=== PATIENT | female | born 1985 | race American Indian/Alaskan Native ===

== ENCOUNTER 2019-05-14 16:19 | Outpatient (CLI) | payer MEDICAID, OTHER ==
[2019-05-14 17:54] LABS: Hematocrit 33.9 % (30.3-42.9); Hemoglobin 11.7 gm/dl (10.1-14.3); Mean Corpuscular HGB Conc 35 % (30-34); Mean Corpuscular Volume 84 fl (79-97); Platelet Count 283 K/mm3 (140-440); Red Blood Count 4.02 M/mm3 (3.65-5.03); Red Cell Distribution Width 13.6 % (13.2-15.2)
[2019-05-14 18:02] LABS: Bilirubin,Urine NEG (Negative); Blood,Urine NEG (Negative); Color,Urine Yellow (Yellow); Mucus,Urine FEW /HPF; Urobilinogen,Urine < 2.0 mg/dL (<2.0)
[2019-05-14] MEDS ORDERED: LACTATED RINGERS 1,000 ML IV ONE (18:08)
[2019-05-14] MEDS ORDERED: ZOFRAN IV ONE (18:08)
[2019-05-14 18:16] LABS: Alanine Aminotransferase 12 units/L (7-56); Albumin 3.4 g/dL (3.9-5); BUN/Creatinine Ratio 13; Blood Urea Nitrogen 5 mg/dL (7-17); Calcium 9.2 mg/dL (8.4-10.2); Hemolysis Index 24
[2019-05-14] MEDS ORDERED: LACTATED RINGERS 1,000 ML ONE (18:23)
[2019-05-14 18:32] LABS: Basophils % (Manual) 0 % (0.0-1.8); Eosinophils % (Manual) 0 % (0.0-4.3); Total Cells Counted 100
[2019-05-14 18:34] LABS: Anisocytosis Few; Platelet Estimate Consistent w Auto; Target Cells 1+
--- NOTE | 2019-05-14 18:45 | Ultrasound Report ---
ULTRASOUND OBSTETRIC INDICATION / CLINICAL INFORMATION: non reassurring FHT. Clinical Gestational Age (GA): 29 weeks 6 days TECHNIQUE: Transabdominal. COMPARISON: None available. FINDINGS: There is a single intrauterine . heart rate 1 5 7 bpm Biophysical profile score 8/8 IMPRESSION: 1. Single, living intrauterine with demonstrated cardiac activity and heart rate 157 bpm 2. Biophysical profile score 8/8 Signer Name: Cam Carrasco MD Signed: 05/14/2019 6:40 PM Workstation Name: [id number]
--- NOTE | 2019-05-14 18:45 | Ultrasound Report ---
ULTRASOUND OBSTETRIC INDICATION / CLINICAL INFORMATION: Abdominal pain. Clinical Gestational Age (GA): 29 weeks 6 days TECHNIQUE: Transabdominal. COMPARISON: None available. FINDINGS: There is a single intrauterine . The placenta appears normal. Heart Rate: 157 beats per minute. Amniotic fluid index 10.4 cm. IMPRESSION: 1. Single, living intrauterine with heart rate 157 bpm. 2. No significant sonographic abnormality. Signer Name: Cam Carrasco MD Signed: 05/14/2019 6:41 PM Workstation Name: [id number]
[2019-05-14 19:41] VITALS: BP 116/58
== END 2019-05-14 21:09 | disposition home or self-care (01) ==
LOC: TRG 16:19
PROVIDERS: ATTEND Obstetrics & Gynecology
DX: O26.893 Other specified pregnancy related conditions, third trimester (principal); R10.30 Lower abdominal pain, unspecified; M54.9 Dorsalgia, unspecified; O47.03 False labor before 37 completed weeks of gestation, third trimester; O24.419 Gestational diabetes mellitus in pregnancy, unspecified control; Z87.891 Personal history of nicotine dependence; Z3A.29 29 weeks gestation of pregnancy
CPT/HCPCS: 36415; 76815; 76819; 80053; 81001; 82150; 83690; 85007; 85025; 86850; 86900; 86901; 87400; 96361; 96374; J2405; J7120; 96360

== ENCOUNTER 2019-07-07 10:30 | Outpatient (CLI) | payer OTHER ==
[2019-07-07 10:59] VITALS: BP 122/72
[2019-07-07] MEDS ORDERED: LACTATED RINGERS 1,000 ML IV SCH (11:00)
[2019-07-07 11:23] LABS: Bacteria,Urine 1+ /HPF (Negative); Bilirubin,Urine NEG (Negative); Blood,Urine NEG (Negative); Color,Urine Yellow (Yellow); Protein,Urine <15 mg/dL mg/dL (Negative); Urobilinogen,Urine < 2.0 mg/dL (<2.0)
[2019-07-07] MEDS ORDERED: cefTRIAXone/NS 1 GM/50 ML 1 GM/50 ML BAG IV ONE (13:00)
--- NOTE | 2019-07-07 14:51 | Ultrasound Report ---
ULTRASOUND BIOPHYSICAL PROFILE ULTRASOUND OB LIMITED INDICATION: vidya TECHNIQUE: Transabdominal ultrasound imaging. COMPARISON: None FINDINGS: breathing movement = 2 Gross body movement = 2 tone = 2 Qualitative amniotic fluid volume = 2 Total biophysical score = 8/8 Amniotic fluid index is 12.1 cm. Presentation is cephalic. heart rate is 138 beats per minute. IMPRESSION: biophysical profile equals 8/8. Signer Name: Laith La Jr, MD Signed: 07/07/2019 2:47 PM Workstation Name: [id number]
== END 2019-07-07 14:52 | disposition home or self-care (01) ==
LOC: TRG 10:30
PROVIDERS: ATTEND Obstetrics & Gynecology
DX: O26.893 Other specified pregnancy related conditions, third trimester (principal); R10.30 Lower abdominal pain, unspecified; O36.8330 Maternal care for abnormalities of the fetal heart rate or rhythm, third trimester, not applicable or unspecified; O47.1 False labor at or after 37 completed weeks of gestation; Z3A.37 37 weeks gestation of pregnancy; Z87.891 Personal history of nicotine dependence
CPT/HCPCS: 59025; 76815; 76819; 81001; 87086; 96361; 96365; J0696; J7120; 96360; 96374

== ENCOUNTER 2019-07-15 08:12 | Inpatient (IN) | payer OTHER ==
[2019-07-15] MEDS ORDERED: TERBUTALINE 1 MG/1 ML INJ IVP PRN (10:24)
[2019-07-15] MEDS ORDERED: ONDANSETRON 4 MG/2 ML INJ IV PRN (10:24)
[2019-07-15] MEDS ORDERED: PROMETHAZINE 25 MG TAB PO PRN (10:24)
[2019-07-15] MEDS ORDERED: NALOXONE 0.4 MG/1 ML INJ IV PRN (10:24)
[2019-07-15] MEDS ORDERED: LIDOCAINE (2%) 20 MG/1 ML VIAL 20 ML MDV INFILTRATI ONE (10:24)
[2019-07-15] MEDS ORDERED: ePHEDrine SULFATE 50 MG/1 ML INJ IV PRN (10:24)
[2019-07-15] MEDS ORDERED: miSOPROStol 25 MCG TAB VG PRN (10:24)
[2019-07-15] MEDS ORDERED: TERBUTALINE 1 MG/1 ML INJ SUB-Q PRN (10:24)
[2019-07-15] MEDS ORDERED: MINERAL OIL 30 ML ORAL LIQD PO PRN (10:24)
[2019-07-15] MEDS ORDERED: OXYTOCIN DRIP 30 UNITS/500 ML BAG IV SCH ×2 (11:00)
[2019-07-15] MEDS ORDERED: OXYTOCIN 20 UNIT/1000ML DRIP 20 UNITS/1,000 ML BAG IV SCH (11:00)
[2019-07-15 11:02] LABS: Hematocrit 35.6 % (30.3-42.9); Hemoglobin 12.4 gm/dl (10.1-14.3); Mean Corpuscular HGB Conc 35 % (30-34); Mean Corpuscular Volume 85 fl (79-97); Platelet Count 274 K/mm3 (140-440); Red Blood Count 4.19 M/mm3 (3.65-5.03)
[2019-07-15] MEDS: LACTATED RINGERS 1,000 ML IV SCH ×2 (12:48→20:06)
--- NOTE | 2019-07-15 16:20 | History and Physical Report ---
History of Present Illness Date of examination: 07/15/19 Date of admission: 07/15/19 08:12 Chief complaint: IOL for IUGR History of present illness: This is a 33yo at 38+4 weeks here for IOL for IUGR . 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 denies: smoking, alcohol abuse, prescription drug abuse - Obstetrical History Expected Date of Delivery: 07/25/19 Actual Gestation: 38 Week(s) 4 Day(s) : 3 Para: 1 Hx # Term Pregnancies: 1 Number of Pregnancies: 0 Spontaneous Abortions: 1 Induced : 0 Number of Living Children: 1 Medications and Allergies Allergies Allergy/AdvReac Type Severity Reaction Status Date / Time No Known Allergies Allergy Verified 07/07/19 10:33 Home Medications Medication Instructions Recorded Confirmed Last Taken Type Nitrofurantoin Meade/M-Cryst 100 mg PO Q12HR #14 capsule 07/07/19 07/15/19 07/14/19 20:00 Rx [Macrobid CAP] Vit-Fe Fumar-FA [ 1 tab PO QDAY 07/15/19 07/15/19 07/14/19 08:00 History Vitamin] valACYclovir [Valtrex] 500 mg PO QDAY 07/15/19 07/15/19 07/14/19 08:00 History Active Meds: Active Medications Butorphanol Tartrate (Stadol) 2 mg IV Q2H PRN PRN Reason: Pain , Severe (7-10) Ephedrine Sulfate (Ephedrine Sulfate) 10 mg IV Q2M PRN PRN Reason: Hypotension Fentanyl (Sublimaze) 100 mcg IV Q2H PRN PRN Reason: Labor Pain Oxytocin/Sodium Chloride (Pitocin/Ns 20 Unit/1000ml Drip) 20 units in 1,000 mls @ 125 mls/hr IV DIRECT MARIE Oxytocin/Sodium Chloride (Pitocin/Ns 30 Unit/500ml) 30 units in 500 mls @ 1 mls/hr IV TITR MARIE; Protocol Last Admin: 07/15/19 13:22 Dose: 2 milliunits/min, 2 mls/hr Documented by: Oxytocin/Sodium Chloride (Pitocin/Ns 30 Unit/500ml) 30 units in 500 mls @ 0 mls/hr IV TITR MARIE; Protocol Lactated Ringer's (Lactated Ringers) 1,000 mls @ 125 mls/hr IV DIRECT MARIE Last Admin: 07/15/19 12:48 Dose: 125 mls/hr Documented by: Mineral Oil (Mineral Oil) 30 ml PO QHS PRN PRN Reason: Constipation Misoprostol (Cytotec) 25 mcg VG Q4HR PRN PRN Reason: Labor Induction Naloxone HCl (Naloxone) 0.1 mg IV Q2MIN PRN PRN Reason: Res Rate </= 8 or 02 SAT < 92% Ondansetron HCl (Zofran) 4 mg IV Q8H PRN PRN Reason: Nausea And Vomiting Promethazine HCl (Phenergan) 25 mg PO Q6H PRN PRN Reason: Nausea And Vomiting Terbutaline Sulfate (Brethine) 0.25 mg SUB-Q ONCE PRN PRN Reason: Hyperstimulation/Hypertonicity Terbutaline Sulfate (Brethine) 0.25 mg IVP ONCE PRN PRN Reason: Hyperstimulation/Hypertonicity Review of Systems All systems: negative - Vital Signs Vital signs: Vital Signs Temp Pulse Resp BP 97.8 F 89 18 120/63 07/15/19 09:11 07/15/19 09:11 07/15/19 09:11 07/15/19 09:11 Temp Pulse Resp BP Pulse Ox 97.8 F 81 18 127/67 99 07/15/19 13:03 07/15/19 16:07 07/15/19 13:03 07/15/19 15:53 07/15/19 16:07 - Physical Exam Breasts: Positive: normal Cardiovascular: Regular rate, Normal S1 Lungs: Positive: Clear to auscultation, Normal air movement Abdomen: Positive: normal appearance, soft, normal bowel sounds Genitourinary (Female): Positive: normal external genitalia Vagina: Positive: normal moisture Uterus: Positive: normal size, normal contour Anus/Rectum: Positive: normal perianal skin Deep Tendon Reflex Grade: Normal +2 - Obstetrical Cervical Dilatation: 1 Cervical Effacement Percentage: 70 station: -2 Uterine Contraction Pattern: Irregular Uterine Tone Measurement Phase: Resting Results Result Diagrams: 07/15/19 09:00 Abnormal lab results 07/15/19 Range/Units 09:00 MCHC 35 H (30-34) % All other labs normal. Assessment and Plan A/P HD#1 38+4 weeks IUGR IOL recommneded by [facility] IVF,labs pitocin low dose for IOL GBS neg expect vaginal delivery
[2019-07-15] MEDS: BUTORPHANOL 2 MG/1 ML INJ IV PRN (19:57)
[2019-07-16] MEDS: BUTORPHANOL 2 MG/1 ML INJ IV PRN ×3 (00:21→12:48)
--- NOTE | 2019-07-16 12:33 | Progress Note ---
Assessment and Plan IUP at 38.3 weeks here for induction due to IUGR. Pt has made no cervical change overnight. Will likely not restart pitocin as cervix is not favorable. Place cervidil Subjective - Subjective Date of service: 07/16/19 Principal diagnosis: IUGR at 38 weeks Interval history: Pt was sent over from [facility] yesterday with instructions to induce labor secondary to IUGR. Pt was place on low dose pitocin overnight. Patient reports: movement normal Objective - Vital Signs Vital Signs: Vital Signs - 12hr 07/16/19 07/16/19 07/16/19 00:32 00:37 00:42 Temperature Pulse Rate 80 80 82 Respiratory Rate Blood Pressure Blood Pressure [Right] O2 Sat by Pulse 98 98 98 Oximetry 07/16/19 07/16/19 07/16/19 00:47 00:52 00:57 Temperature Pulse Rate 83 86 85 Respiratory Rate Blood Pressure Blood Pressure [Right] O2 Sat by Pulse 98 98 98 Oximetry 07/16/19 07/16/19 07/16/19 01:02 01:07 01:12 Temperature Pulse Rate 76 91 H 90 Respiratory Rate Blood Pressure Blood Pressure [Right] O2 Sat by Pulse 97 97 98 Oximetry 07/16/19 07/16/19 07/16/19 01:17 01:22 01:27 Temperature Pulse Rate 84 82 90 Respiratory Rate Blood Pressure Blood Pressure [Right] O2 Sat by Pulse 97 98 97 Oximetry 07/16/19 07/16/19 07/16/19 01:32 01:37 01:42 Temperature Pulse Rate 89 79 78 Respiratory Rate Blood Pressure Blood Pressure [Right] O2 Sat by Pulse 100 99 98 Oximetry 07/16/19 07/16/19 07/16/19 01:52 01:57 02:02 Temperature Pulse Rate 106 H 90 93 H Respiratory Rate Blood Pressure Blood Pressure [Right] O2 Sat by Pulse 99 99 99 Oximetry 07/16/19 07/16/19 07/16/19 02:07 02:12 02:17 Temperature Pulse Rate 94 H 96 H 80 Respiratory Rate Blood Pressure Blood Pressure [Right] O2 Sat by Pulse 99 99 98 Oximetry 07/16/19 07/16/19 07/16/19 02:22 02:25 02:27 Temperature Pulse Rate 80 77 83 Respiratory Rate Blood Pressure 107/61 Blood Pressure [Right] O2 Sat by Pulse 99 99 Oximetry 07/16/19 07/16/19 07/16/19 02:32 02:37 02:42 Temperature Pulse Rate 84 73 77 Respiratory Rate Blood Pressure Blood Pressure [Right] O2 Sat by Pulse 99 98 99 Oximetry 07/16/19 07/16/19 07/16/19 02:47 02:52 02:57 Temperature Pulse Rate 79 76 82 Respiratory Rate Blood Pressure Blood Pressure [Right] O2 Sat by Pulse 99 99 100 Oximetry 07/16/19 07/16/19 07/16/19 03:02 03:07 03:12 Temperature Pulse Rate 83 82 81 Respiratory Rate Blood Pressure Blood Pressure [Right] O2 Sat by Pulse 99 99 98 Oximetry 07/16/19 07/16/19 07/16/19 03:17 03:22 03:27 Temperature Pulse Rate 77 84 84 Respiratory Rate Blood Pressure Blood Pressure [Right] O2 Sat by Pulse 99 99 99 Oximetry 07/16/19 07/16/19 07/16/19 03:32 03:37 03:42 Temperature Pulse Rate 75 78 82 Respiratory Rate Blood Pressure Blood Pressure [Right] O2 Sat by Pulse 100 99 100 Oximetry 07/16/19 07/16/19 07/16/19 03:47 03:52 03:57 Temperature Pulse Rate 89 76 91 H Respiratory Rate Blood Pressure Blood Pressure [Right] O2 Sat by Pulse 99 99 100 Oximetry 07/16/19 07/16/19 07/16/19 04:02 04:07 04:12 Temperature Pulse Rate 80 87 85 Respiratory Rate Blood Pressure Blood Pressure [Right] O2 Sat by Pulse 100 99 99 Oximetry 07/16/19 07/16/19 07/16/19 04:17 04:22 04:24 Temperature Pulse Rate 80 87 82 Respiratory Rate Blood Pressure 106/54 Blood Pressure [Right] O2 Sat by Pulse 100 99 Oximetry 07/16/19 07/16/19 07/16/19 04:28 04:33 04:38 Temperature Pulse Rate 76 86 83 Respiratory Rate Blood Pressure Blood Pressure [Right] O2 Sat by Pulse 99 98 98 Oximetry 07/16/19 07/16/19 07/16/19 04:43 04:48 04:53 Temperature Pulse Rate 68 84 89 Respiratory Rate Blood Pressure Blood Pressure [Right] O2 Sat by Pulse 99 99 99 Oximetry 07/16/19 07/16/19 07/16/19 04:58 05:03 05:08 Temperature Pulse Rate 86 87 82 Respiratory Rate Blood Pressure Blood Pressure [Right] O2 Sat by Pulse 99 100 100 Oximetry 07/16/19 07/16/19 07/16/19 05:15 05:20 05:25 Temperature Pulse Rate 85 91 H 88 Respiratory Rate Blood Pressure Blood Pressure [Right] O2 Sat by Pulse 99 99 99 Oximetry 07/16/19 07/16/19 07/16/19 05:30 05:35 05:40 Temperature Pulse Rate 84 85 88 Respiratory Rate Blood Pressure Blood Pressure [Right] O2 Sat by Pulse 99 99 98 Oximetry 07/16/19 07/16/19 07/16/19 05:45 05:50 05:55 Temperature Pulse Rate 88 78 95 H Respiratory Rate Blood Pressure Blood Pressure [Right] O2 Sat by Pulse 99 99 100 Oximetry 07/16/19 07/16/19 07/16/19 06:00 06:05 06:10 Temperature Pulse Rate 90 107 H 85 Respiratory Rate Blood Pressure Blood Pressure [Right] O2 Sat by Pulse 100 100 100 Oximetry 07/16/19 07/16/19 07/16/19 06:15 06:20 06:24 Temperature Pulse Rate 98 H 101 H 93 H Respiratory Rate Blood Pressure 150/70 Blood Pressure [Right] O2 Sat by Pulse 99 100 Oximetry 07/16/19 07/16/19 07/16/19 06:25 06:30 06:33 Temperature Pulse Rate 98 H 97 H Respiratory 16 Rate Blood Pressure Blood Pressure [Right] O2 Sat by Pulse 100 100 Oximetry 07/16/19 07/16/19 07/16/19 06:35 06:40 06:45 Temperature Pulse Rate 85 92 H 76 Respiratory Rate Blood Pressure Blood Pressure [Right] O2 Sat by Pulse 100 99 99 Oximetry 07/16/19 07/16/19 07/16/19 06:50 06:55 07:00 Temperature Pulse Rate 78 77 77 Respiratory Rate Blood Pressure Blood Pressure [Right] O2 Sat by Pulse 98 98 98 Oximetry 07/16/19 07/16/19 07/16/19 07:05 07:43 08:09 Temperature 98.7 F Pulse Rate 82 82 94 H Respiratory 16 Rate Blood Pressure Blood Pressure 150/70 [Right] O2 Sat by Pulse 98 98 99 Oximetry 07/16/19 07/16/19 07/16/19 08:14 08:19 08:24 Temperature Pulse Rate 93 H 93 H 93 H Respiratory Rate Blood Pressure 120/63 Blood Pressure [Right] O2 Sat by Pulse 98 99 98 Oximetry 07/16/19 07/16/19 07/16/19 08:29 08:34 08:39 Temperature Pulse Rate 81 82 86 Respiratory Rate Blood Pressure Blood Pressure [Right] O2 Sat by Pulse 98 98 98 Oximetry 07/16/19 07/16/19 07/16/19 08:44 08:49 08:54 Temperature Pulse Rate 76 78 79 Respiratory Rate Blood Pressure Blood Pressure [Right] O2 Sat by Pulse 98 98 98 Oximetry 07/16/19 07/16/19 07/16/19 08:59 09:04 09:09 Temperature Pulse Rate 75 78 82 Respiratory Rate Blood Pressure Blood Pressure [Right] O2 Sat by Pulse 98 97 97 Oximetry 07/16/19 07/16/19 07/16/19 09:14 09:19 09:24 Temperature Pulse Rate 75 83 81 Respiratory Rate Blood Pressure Blood Pressure [Right] O2 Sat by Pulse 98 98 98 Oximetry 07/16/19 07/16/19 07/16/19 09:29 09:34 09:39 Temperature Pulse Rate 84 83 80 Respiratory Rate Blood Pressure Blood Pressure [Right] O2 Sat by Pulse 98 98 98 Oximetry 07/16/19 07/16/19 07/16/19 09:44 09:49 09:54 Temperature Pulse Rate 79 78 75 Respiratory Rate Blood Pressure Blood Pressure [Right] O2 Sat by Pulse 99 98 98 Oximetry 07/16/19 07/16/19 07/16/19 09:59 10:08 10:13 Temperature Pulse Rate 81 84 79 Respiratory Rate Blood Pressure Blood Pressure [Right] O2 Sat by Pulse 98 100 99 Oximetry 07/16/19 07/16/19 07/16/19 10:18 10:23 10:24 Temperature Pulse Rate 79 85 88 Respiratory Rate Blood Pressure 119/60 Blood Pressure [Right] O2 Sat by Pulse 99 99 Oximetry 07/16/19 07/16/19 07/16/19 10:28 11:41 12:11 Temperature Pulse Rate 89 90 93 H Respiratory Rate Blood Pressure 113/53 107/51 Blood Pressure [Right] O2 Sat by Pulse 100 Oximetry - Exam Breasts: deferred Cardiovascular: Regular rate, Normal S1, Normal S2 Lungs: Clear to auscultation, Normal air movement Abdomen: Present: normal appearance, soft, normal bowel sounds FHR: auscultation normal Cervical Dilatation: 1.5 Cervical Effacement Percentage: 40 station: 4 Uterine Contraction Pattern: Absent Deep Tendon Reflex Grade: Normal +2 - Labs Labs: Abnormal Labs 07/15/19 09:00 MCHC 35 H
[2019-07-16] MEDS: LACTATED RINGERS 1,000 ML IV SCH (12:51)
[2019-07-16] MEDS ORDERED: DINOPROSTONE 10 MG VAG SUPP VG ONE (13:54)
[2019-07-16] MEDS ORDERED: diphenhydrAMINE 50 MG CAP PO NR (19:00)
[2019-07-17] MEDS: BUTORPHANOL 2 MG/1 ML INJ IV PRN (05:50)
[2019-07-17] MEDS: miSOPROStol 25 MCG TAB PO PRN ×3 (11:58→20:35)
[2019-07-17] MEDS: LACTATED RINGERS 1,000 ML IV SCH (12:02)
[2019-07-17] MEDS ORDERED: ZOLPIDEM 5 MG TAB PO PRN ×2 (19:19→20:22)
[2019-07-18] MEDS: LACTATED RINGERS 1,000 ML IV SCH ×2 (01:14→08:55)
--- NOTE | 2019-07-18 08:47 | Progress Note ---
Assessment and Plan - Patient Problems (1) Intrauterine growth restriction affecting care of mother Current Visit: Yes Status: Acute Plan to address problem: continue with induction pitocin and amnioinfusion Subjective - Subjective Date of service: 07/18/19 Principal diagnosis: IUGR at 38 weeks Interval history: 33y/o @ 39+0 weeks being induced for IUGR. The patient has not responded to induction agents. She remains intact. Last medication given cytotec po yesterday around 8:30pm. Cervix today 2-3/50/-3. Amniotomy performed and IUPC placed with meconium stained fluid. Will initiate pitocin and amnioinfusion. Patient reports: movement normal Objective - Vital Signs Vital Signs: Vital Signs - 12hr 07/17/19 07/17/19 07/17/19 20:49 20:54 20:59 Temperature Pulse Rate 76 90 83 Respiratory Rate Blood Pressure Blood Pressure [Right] O2 Sat by Pulse 100 100 100 Oximetry 07/17/19 07/17/19 07/17/19 21:03 21:04 21:09 Temperature Pulse Rate 93 H 98 H 79 Respiratory 20 Rate Blood Pressure 135/83 Blood Pressure 123/60 [Right] O2 Sat by Pulse 100 100 Oximetry 07/17/19 07/17/19 07/17/19 21:14 21:30 21:33 Temperature Pulse Rate 100 H 77 104 H Respiratory 20 Rate Blood Pressure 123/59 Blood Pressure 123/60 [Right] O2 Sat by Pulse 100 99 Oximetry 07/17/19 07/17/19 07/17/19 22:02 22:32 23:03 Temperature Pulse Rate 82 86 77 Respiratory Rate Blood Pressure 111/57 116/59 103/57 Blood Pressure [Right] O2 Sat by Pulse Oximetry 07/17/19 07/18/19 07/18/19 23:33 00:03 00:34 Temperature Pulse Rate 80 80 85 Respiratory Rate Blood Pressure 88/52 89/52 89/50 Blood Pressure [Right] O2 Sat by Pulse Oximetry 07/18/19 07/18/19 07/18/19 01:08 03:20 03:25 Temperature 97.3 F L Pulse Rate 85 82 77 Respiratory 18 Rate Blood Pressure 97/59 Blood Pressure 89/50 [Right] O2 Sat by Pulse 99 99 Oximetry 07/18/19 07/18/19 07/18/19 03:30 03:35 03:40 Temperature Pulse Rate 88 76 74 Respiratory Rate Blood Pressure Blood Pressure [Right] O2 Sat by Pulse 100 100 100 Oximetry 07/18/19 07/18/19 07/18/19 03:43 03:45 03:50 Temperature Pulse Rate 86 84 82 Respiratory 20 Rate Blood Pressure Blood Pressure 97/59 [Right] O2 Sat by Pulse 99 100 98 Oximetry 07/18/19 07/18/19 07/18/19 03:55 04:00 04:05 Temperature Pulse Rate 94 H 76 80 Respiratory Rate Blood Pressure Blood Pressure [Right] O2 Sat by Pulse 100 100 100 Oximetry 07/18/19 07/18/19 07/18/19 04:10 04:15 04:20 Temperature Pulse Rate 82 83 84 Respiratory Rate Blood Pressure Blood Pressure [Right] O2 Sat by Pulse 100 98 99 Oximetry 07/18/19 07/18/19 07/18/19 04:25 04:30 04:35 Temperature Pulse Rate 81 85 96 H Respiratory Rate Blood Pressure Blood Pressure [Right] O2 Sat by Pulse 99 100 100 Oximetry 07/18/19 07/18/19 07:45 07:47 Temperature 98.1 F Pulse Rate 87 Respiratory 18 Rate Blood Pressure 124/70 Blood Pressure [Right] O2 Sat by Pulse Oximetry - Labs Labs: Abnormal Labs 07/15/19 09:00 MCHC 35 H
[2019-07-18] MEDS ORDERED: OXYTOCIN DRIP 30 UNITS/500 ML BAG IV SCH (09:00)
[2019-07-18] MEDS ORDERED: SODIUM CHLORIDE 0.9% 1000 ML 1,000 ML ONE ×2 (09:03→10:25)
[2019-07-18] MEDS: fentaNYL 100 MCG/2 ML INJ IV PRN ×2 (09:58→12:03)
[2019-07-18] MEDS ORDERED: miSOPROStol 200 MCG TAB PO ONE (14:05)
[2019-07-18] MEDS ORDERED: LIDOCAINE (2%) 20 MG/1 ML VIAL 20 ML MDV INFILTRATI ONE (14:05)
[2019-07-18 14:10] LABS: Hematocrit 39.7 % (30.3-42.9); Hemoglobin 13.2 gm/dl (10.1-14.3); Mean Corpuscular HGB Conc 33 % (30-34); Mean Corpuscular Volume 86 fl (79-97); Platelet Count 276 K/mm3 (140-440); Red Cell Distribution Width 15.3 % (13.2-15.2)
[2019-07-18] MEDS ORDERED: ONDANSETRON 4 MG/2 ML INJ IV PRN (14:41)
[2019-07-18] MEDS ORDERED: PROMETHAZINE 25 MG TAB PO PRN (14:41)
[2019-07-18] MEDS ORDERED: diphenhydrAMINE 25 MG CAP PO PRN (14:41)
[2019-07-18] MEDS ORDERED: ACETAMINOPHEN 325 MG TAB PO PRN (14:41)
[2019-07-18] MEDS ORDERED: LANOLIN/ZINC/DIMETHICONE (LANSINOH) 7 GM TP PRN (14:41)
[2019-07-18] MEDS ORDERED: PROMETHAZINE 25 MG RECT SUPP PR PRN (14:41)
[2019-07-18] MEDS ORDERED: WITCH HAZEL/ GLYCERIN PAD TP PRN (14:41)
[2019-07-18] MEDS ORDERED: MAGNESIUM HYDROXIDE (MOM) ORAL LIQD UDC PO PRN (14:41)
[2019-07-18] MEDS ORDERED: IBUPROFEN 600 MG TAB PO PRN ×2 (14:49→15:02)
--- NOTE | 2019-07-18 14:49 | Procedure Note ---
OB Delivery Note - Delivery Date of Delivery: 07/18/19 Surgeon: RODOLFO OLSON ([facility]) Estimated blood loss: 200cc - Vaginal Delivery presentation: vertex Delivery position: OA Intrapartum events: PROM->1hr before delivery, meconium, other(please specify) (4-day induction of labor) Delivery induction: oxytocin Delivery augmentation: rupture of membranes, pitocin Delivery monitor: external FHT, external uterine Route of delivery: Delivery placenta: spontaneous Delivery cord: 3 umbilical vessels Episiotomy: none Delivery laceration: none Anesthesia: none Delivery comments: Pt noted to have anterior lip. Commenced pushing and manually reduced cervix. Excellent maternal effort resulted in of viable male infant over intact perineum with meconium-stained fluid and body. Head delivered OA, restituted LOT. Shoulders followed easily. Spontaneous respirations. Bulb suction of oropharynx by [facility]YLE team. Delayed cord clamping. Pitocin infusing. Placenta delivered 20 minutes after , spontaneously and intact, succenturiate lobe noted, 3 vessel cord. EBL 200cc. Cytotec 800 mcg administered ND. Mother and bonding well. - A Infant Gender: Male
[2019-07-18] MEDS: IBUPROFEN 600 MG TAB PO SCH ×2 (15:07→23:28)
[2019-07-18] MEDS ORDERED: oxyCODONE /ACETAMINOPHEN 5-325MG TAB PO ONE (16:35)
[2019-07-18] MEDS: FERROUS SULFATE 325 MG TAB PO SCH (22:12)
[2019-07-18 23:22] LABS: Hematocrit 28.1 % (30.3-42.9); Hemoglobin 9.3 gm/dl (10.1-14.3)
[2019-07-19 06:36] LABS: Hemoglobin 9.1 gm/dl (10.1-14.3)
[2019-07-19] MEDS: IBUPROFEN 600 MG TAB PO SCH ×2 (06:38→11:20)
--- NOTE | 2019-07-19 07:44 | Discharge Summary ---
Providers - Providers Date of Admission: 07/15/19 08:12 Date of discharge: 07/20/19 Attending physician: LUIGI CHILDS MD Primary care physician: SUMMER CARLISLE Hospitalization Reason for admission: induction of labor Delivery: Procedure details: Please see delivery note. Episiotomy: none Laceration: none Other procedures: none complications: none Discharge diagnosis: IUP at term delivered baby: male Hospital course: Pt was admitted for induction of labor secondary to IUGR and went on to have a spontaneous vaginal delivery which she tolerated well. Her care was uncomplicated and she met discharge criteria on PPD#2. Condition at discharge: Stable Disposition: DC- TO HOME OR SELFCARE - Discharge Diagnoses (1) Anemia Status: Acute Qualifiers: Anemia type: iron deficiency Iron deficiency anemia type: unspecified iron deficiency Qualified Code(s): D50.9 - Iron deficiency anemia, unspecified (2) Intrauterine growth restriction affecting care of mother Status: Acute Plan - Discharge Medications Prescriptions: Ferrous Sulfate [Feosol 325 MG tab] 325 mg PO BID #60 tablet Ibuprofen [Motrin] 800 mg PO Q8HR PRN #30 tablet PRN Reason: Pain, Moderate (4-6) HYDROcodone/APAP 5-325 [[place] 5/325] 1 each PO Q6HR PRN #20 tablet PRN Reason: Pain - Provider Discharge Summary Activity: routine, no sex for 6 weeks, no heavy lifting 4 weeks, no strenuous exercise Diet: routine Instructions: routine Additional instructions: [] Smoking cessation referral if applicable(refer to patient education folder for contact #) [] Refer to [facility] Booklet Call your doctor immediately for: * Fever > 100.5 * Heavy vaginal bleeding ( >1 pad per hour) * Severe persistent headache * Shortness of breath * Reddened, hot, painful area to leg or breast * Drainage or odor from incision. * Keep incision clean and dry at all times and follow doctor's instructions regarding bathing/showering - Follow up plan Follow up: RODOLFO OLSON CNM [Advanced Practice Nurse] - 08/15/19 (Please call to schedule your appt )
--- NOTE | 2019-07-19 07:44 | Progress Note ---
Assessment and Plan A: PPD#1 s/p at term after induction of labor secondary to IUGR, Asymptomatic anemia P: Routine care. Anticipate discharge tomorrow Subjective - Subjective Date of service: 07/19/19 Principal diagnosis: IUGR at 38 weeks Interval history: s/p at term. No overnight events Patient reports: appetite normal, voiding normally, pain well controlled, ambulating normally [place]: doing well Objective - Vital Signs Latest vital signs: Vital Signs Temp Pulse Resp BP BP Pulse Ox 07/19/19 06:38 20 07/19/19 01:41 20 07/19/19 01:30 98.6 F 86 18 109/60 99 07/18/19 23:28 20 07/18/19 21:05 97.7 F 86 18 130/51 99 07/18/19 16:05 98.4 F 74 18 128/71 99 07/18/19 15:34 81 137/62 07/18/19 15:19 96 H 114/58 07/18/19 15:04 88 128/60 07/18/19 15:00 97.8 F 18 07/18/19 14:49 85 146/60 07/18/19 14:43 100 H 100 07/18/19 14:38 86 93 07/18/19 14:33 84 100 07/18/19 14:30 97.9 F 86 18 139/68 99 07/18/19 13:53 92 H 83 L 07/18/19 13:48 65 86 07/18/19 13:43 76 100 07/18/19 13:38 91 H 100 07/18/19 13:33 84 100 07/18/19 13:28 80 100 07/18/19 13:23 86 120/60 100 07/18/19 13:18 80 100 07/18/19 13:13 78 100 07/18/19 13:08 96 H 100 07/18/19 13:03 74 100 07/18/19 12:58 89 100 07/18/19 12:54 81 110/70 07/18/19 12:53 82 100 07/18/19 12:48 71 100 07/18/19 12:43 89 100 07/18/19 12:38 82 100 07/18/19 12:35 81 135/72 07/18/19 12:33 79 100 07/18/19 12:28 74 100 07/18/19 12:20 98.2 F 07/18/19 11:25 86 140/76 07/18/19 11:10 93 H 81 L 07/18/19 11:06 95 H 100 07/18/19 11:03 96 H 89 07/18/19 11:01 97 H 77 L 07/18/19 11:00 98.1 F 07/18/19 10:58 104 H 91 07/18/19 10:56 86 100 07/18/19 10:54 81 134/85 07/18/19 10:51 96 H 100 07/18/19 10:46 97 H 100 07/18/19 10:41 74 100 07/18/19 10:36 83 100 07/18/19 10:31 74 100 07/18/19 10:26 89 100 07/18/19 10:23 86 117/65 07/18/19 10:21 81 98 07/18/19 10:16 82 99 07/18/19 10:11 77 99 07/18/19 10:06 89 100 07/18/19 10:01 103 H 100 07/18/19 09:56 102 H 100 07/18/19 09:53 81 120/67 07/18/19 09:51 97 H 100 07/18/19 09:46 78 100 07/18/19 09:41 93 H 100 07/18/19 09:36 87 100 07/18/19 09:31 83 100 07/18/19 09:26 81 100 07/18/19 09:25 97.9 F 07/18/19 09:23 78 130/64 07/18/19 07:47 87 124/70 07/18/19 07:45 98.1 F 18 Intake and Output 07/18/19 07/19/19 07/19/19 22:59 06:59 14:59 Intake Total 240 720 Output Total 600 Balance -360 720 Intake: Oral 240 Intake, Free Water 720 Output: Urine 600 Void 600 Other: Total, Intake Amount 240 Total, Output Amount 200 # Voids Void 1 2 - Exam Breasts: Present: deferred Cardiovascular: Present: Regular rate Lungs: Present: Clear to auscultation Abdomen: Present: soft Uterus: Present: fundal height at umbilicus Extremities: Present: normal - Labs Labs: Abnormal lab results 07/18/19 07/18/19 07/19/19 Range/Units 13:43 23:00 06:10 WBC 20.7 H (4.5-11.0) K/mm3 Hgb 9.3 L D 9.1 L (10.1-14.3) gm/dl Hct 28.1 L D 27.0 L (30.3-42.9) % RDW 15.3 H (13.2-15.2) %
[2019-07-19] MEDS: FERROUS SULFATE 325 MG TAB PO SCH (09:13)
[2019-07-19] MEDS ORDERED: TETANUS,DIPH,PERTUSS(ACELL) VACCINE 0.5 ML SYRINGE IM ONE (15:41)
[2019-07-19 17:14] VITALS: BP 111/53
== END 2019-07-19 18:45 | disposition home or self-care (01) | DRG 775 ==
LOC: LD 08:12 → OB 07-18 16:23
PROVIDERS: ADMIT Obstetrics & Gynecology; ATTEND Obstetrics & Gynecology
PROC: 10E0XZZ Delivery of Products of Conception, External Approach (ICD-10-PCS; principal; 2019-07-18)
PROC: 3E033VJ Introduction of Other Hormone into Peripheral Vein, Percutaneous Approach (ICD-10-PCS; 2019-07-18)
PROC: 10H07YZ Insertion of Other Device into Products of Conception, Via Natural or Artificial Opening (ICD-10-PCS; 2019-07-18)
PROC: 3E0E7KZ Introduction of Other Diagnostic Substance into Products of Conception, Via Natural or Artificial Opening (ICD-10-PCS; 2019-07-18)
PROC: 3E0234Z Introduction of Serum, Toxoid and Vaccine into Muscle, Percutaneous Approach (ICD-10-PCS; 2019-07-19)
DX: O36.5930 Maternal care for other known or suspected poor fetal growth, third trimester, not applicable or unspecified (principal); O99.02 Anemia complicating childbirth; D50.9 Iron deficiency anemia, unspecified; O77.0 Labor and delivery complicated by meconium in amniotic fluid; O42.02 Full-term premature rupture of membranes, onset of labor within 24 hours of rupture; Z79.899 Other long term (current) drug therapy; Z3A.38 38 weeks gestation of pregnancy; Z37.0 Single live birth; Z23 Encounter for immunization
CPT/HCPCS: 36415; 59200; 85014; 85018; 85027; 86850; 86900; 86901; 88307; G0378; J0595; J2405; J2590; J3010; J7030; J7120; Q0169